=== PATIENT | male | born 1970 | race African-American/Black ===

== ENCOUNTER 2017-12-05 13:31 | Emergency (ER) | payer OTHER ==
[~2017-12-05] VITALS: Ht 182.9 cm; Wt 79.5 kg
[2017-12-05] MEDS ORDERED: MAG HYDROX/AL HYDROX/SIMETH ES 30 ML SUSPENSION UDCUP PO ONE (14:00)
[2017-12-05 14:49] LABS: BASOPHILS % (AUTO) 0.1 % (0.0-2.0); EOSINOPHILS % (AUTO) 0 % (1.0-6.0); HEMATOCRIT 36.9 % (41-53); HEMOGLOBIN 12.3 g/dL (13.5-17.5); LYMPHOCYTES # (AUTO) 1.3 K/uL (1.0-4.8); LYMPHOCYTES % (AUTO) 12.6 % (22.0-44.0); MEAN CORPUSCULAR HEMOGLOBIN 28.8 pg (26.0-34.0); MEAN CORPUSCULAR HGB CONC 33.4 G/dL (31.0-37.0); MEAN CORPUSCULAR VOLUME 86 fL (80-100); MONOCYTES # (AUTO) 0.3 K/uL (0.1-1.0); MONOCYTES % (AUTO) 2.8 % (2.0-9.0); NEUTROPHILS # (AUTO) 8.9 K/uL (1.8-7.7); NEUTROPHILS % (AUTO) 84.5 % (40.0-70.0); PLATELET COUNT (AUTO) 313 K/uL (150-450); RED BLOOD CELL COUNT(AUTO) 4.27 MIL/uL (4.50-5.90); RED CELL DISTRIBUTION WIDTH 13.1 % (11.5-14.5)
[2017-12-05 15:01] LABS: PROTHROMBIN TIME 10.9 SEC (9.4-11.6)
[2017-12-05 15:16] LABS: B-TYPE NATRIURETIC PEPTIDE 28 pg/mL (0-100)
[2017-12-05 15:25] LABS: ALANINE AMINOTRANSFERASE 22 U/L (12-78); ALKALINE PHOSPHATASE 31 U/L (46-116); ANION GAP 16 mmol/L (8-16); ASPARTATE AMINOTRANSFERASE 42 U/L (15-37); BILIRUBIN,TOTAL 0.9 mg/dL (0.1-1.0); CALCIUM, TOTAL 9.4 mg/dL (8.8-10.5); CARBON DIOXIDE 24 mmol/L (22-29); CHLORIDE 99 mmol/L (98-107); CREATINE KINASE MB 16.6 ng/mL (0-5); GLUCOSE,RANDOM 62 mg/dL (70-110); LIPASE 73 U/L (73-393); POTASSIUM 3.9 mmol/L (3.5-5.1); SODIUM SERUM 139 mmol/L (136-145); TOTAL PROTEIN, SERUM 8.2 g/dL (6.4-8.2); UREA NITROGEN, BLOOD 14 mg/dL (7-18)
[2017-12-05 15:34] LABS: CREATINE KINASE, TOTAL 1616 U/L (39-308)
[2017-12-05 15:35] LABS: CREATININE 1.18 mg/dL (0.60-1.30); GLOMERULAR FILTR. RATE CALC > 60 mL/min (>60)
[2017-12-05] MEDS ORDERED: SODIUM CHLORIDE 0.9% 1,000 ML IV ONE (16:00)
[2017-12-05 18:12] VITALS: BP 129/80
== END 2017-12-05 18:20 | disposition home or self-care (01) ==
LOC: EMS 13:37
DX: R10.13 Epigastric pain (principal); F19.90 Other psychoactive substance use, unspecified, uncomplicated
CPT/HCPCS: 36415; 71045; 80053; 82550; 82553; 83690; 83880; 84484; 85025; 85610; 85730; 93005; 99285; G0480; J7030

== ENCOUNTER 2018-06-29 02:26 | Emergency (ER) | payer OTHER ==
[~2018-06-29] VITALS: Ht 182.9 cm; Wt 100.0 kg
[2018-06-29 02:36] VITALS: BP 149/102
[2018-06-29] MEDS ORDERED: IBUPROFEN 800 MG TABLET PO ONE (04:45)
== END 2018-06-29 05:16 | disposition left against medical advice (07) ==
LOC: EMS 02:27
DX: R07.9 Chest pain, unspecified (principal); R44.0 Auditory hallucinations; F20.9 Schizophrenia, unspecified; F15.90 Other stimulant use, unspecified, uncomplicated; F17.210 Nicotine dependence, cigarettes, uncomplicated
CPT/HCPCS: 93005; 99284; 99285